=== PATIENT | female | born 1985 | race Caucasian/White ===

== ENCOUNTER 2017-07-31 12:56 | Emergency (ER) | payer MEDICAID ==
[~2017-07-31] VITALS: Ht 162.6 cm; Wt 56.7 kg
[~2017-07-31 12:56] MED LIST: IBUP-1969 PO; NORG1TAB39 PO; OSEL30CA PO
[2017-07-31 12:58] VITALS: BP_SYST 147
[2017-07-31 14:58] VITALS: BP_SYST 138
== END 2017-07-31 14:58 | disposition home or self-care (01) ==
LOC: SED 12:56
DX: J06.9 Acute upper respiratory infection, unspecified (principal); R03.0 Elevated blood-pressure reading, without diagnosis of hypertension; Z88.1 Allergy status to other antibiotic agents
CPT/HCPCS: 99283

== ENCOUNTER 2018-08-06 14:22 | Emergency (ER) | payer MEDICAID ==
[~2018-08-06] VITALS: Ht 162.6 cm; Wt 56.7 kg
[2018-08-06 14:34] VITALS: BP_SYST 127
--- NOTE | 2018-08-06 14:50 | NUR ---
Patient to ER bed 5 to gown for evaluation. Side rails up. Assumed Care.
--- NOTE | 2018-08-06 14:55 | NUR ---
Patient presents to the ED with complaints of a foreign body sensation in her left ear since last night. Patient reports having cotton stuck in her ear last night, her father tried flushing out the cotton with no success. Today she reports still having a discomfort. No pain reported. Otherwise no headache, hearing changes, visual changes, discharge, fever, congestion, runny nose, or dizziness.
--- NOTE | 2018-08-06 14:55 | NUR ---
ER at bedside examining patient.
[2018-08-06 15:27] VITALS: BP_SYST 123
--- NOTE | 2018-08-06 15:27 | NUR ---
Patient given written and verbal discharge instructions and verbalizes understanding. ER MD discussed with patient the results and treatment provided. Patient in stable condition. ID arm band removed. No Rx given. Patient educated on pain management and to follow up with PMD. Pain Scale 0/10. Opportunity for questions provided and answered. Medication side effect fact sheet provided.
== END 2018-08-06 15:27 | disposition home or self-care (01) ==
LOC: SED 14:22
DX: T16.2XXA Foreign body in left ear, initial encounter (principal); M79.7 Fibromyalgia; F17.200 Nicotine dependence, unspecified, uncomplicated; Z88.8 Allergy status to other drugs, medicaments and biological substances; Z79.899 Other long term (current) drug therapy; X58.XXXA Exposure to other specified factors, initial encounter; Y93.89 Activity, other specified; Y92.89 Other specified places as the place of occurrence of the external cause; Y99.8 Other external cause status
CPT/HCPCS: 99281; 99282

== ENCOUNTER 2021-02-23 16:40 | Emergency (ER) | payer MEDICAID ==
[~2021-02-23] VITALS: Ht 157.5 cm; Wt 54.4 kg
[2021-02-23 16:40] VITALS: BP_SYST 149
[2021-02-23] MEDS ORDERED: ASPIRIN 81 MG TAB.CHEW PO ONE (19:00)
[2021-02-23] MEDS ORDERED: MAG HYDROX/AL HYDROX/SIMETH 30 ML, DICYCLOMINE HCL 20 MG, LIDOCAINE VISCOUS 2% 15ML (PO... PO ONE ×6 (19:00)
[2021-02-23 19:34] LABS: BASOPHILS # (AUTO) 0.1 K/uL (0.0-0.2); BASOPHILS % (AUTO) 0.8 % (0.0-2.0); EOSINOPHILS % (AUTO) 0.4 % (0.0-4.0); HEMATOCRIT 37.2 % (36-48); HEMOGLOBIN 12.1 g/dL (12.0-16.0); LYMPHOCYTES # (AUTO) 1.7 K/uL (1.0-5.5); LYMPHOCYTES % (AUTO) 19.8 % (20.5-51.5); MEAN CORPUSCULAR HEMOGLOBIN 27 pg (27-31); MEAN CORPUSCULAR HGB CONC 33 % (32-36); MEAN CORPUSCULAR VOLUME 83 fL (79.0-98.0); MONOCYTES # (AUTO) 0.5 K/uL (0.0-1.0); MONOCYTES % (AUTO) 5.9 % (1.7-9.3); NEUTROPHILS # (AUTO) 6.4 K/uL (1.8-7.7); NEUTROPHILS % (AUTO) 73.1 % (40.0-70.0); PLATELET COUNT (AUTO) 272 K/uL (130-430); RED BLOOD CELL COUNT(AUTO) 4.49 MIL/uL (4.2-6.2); RED CELL DISTRIBUTION WIDTH 16.3 % (9.0-15.0); WHITE BLOOD COUNT (AUTO) 8.8 K/uL (4.8-10.8)
[2021-02-23 20:01] LABS: CALCIUM 9.3 mg/dL (8.4-11.0); CREATININE 0.78 mg/dL (0.55-1.30); POTASSIUM 3.7 mmol/L (3.5-5.1)
[2021-02-23 20:06] LABS: ALBUMIN 4.3 g/dL (3.4-4.8); TOTAL BILIRUBIN 1.2 mg/dL (0.0-1.0)
[2021-02-23 20:24] LABS: ERYTHROCYTE SEDIMENTATION RATE 7 MM/HR (0-20)
[2021-02-23] MEDS ORDERED: OMEP40CA13 PO (20:42)
[2021-02-23 21:01] VITALS: BP_SYST 149
== END 2021-02-23 21:01 | disposition home or self-care (01) ==
LOC: SED 16:40
DX: K21.00 Gastro-esophageal reflux disease with esophagitis, without bleeding (principal); M94.0 Chondrocostal junction syndrome [Tietze]; Z88.8 Allergy status to other drugs, medicaments and biological substances; Z79.899 Other long term (current) drug therapy
CPT/HCPCS: 36415; 71045; 80053; 83880; 84484; 85025; 85651; 93005; 99285; J2001